=== PATIENT | male | born 1980 | race Caucasian/White ===

== ENCOUNTER 2021-11-03 12:37 | Emergency (ER) | payer BC ==
[~2021-11-03] VITALS: Ht 182.9 cm; Wt 127.0 kg
== END 2021-11-03 17:20 | disposition home or self-care (01) ==
LOC: ER1 12:37
DX: U07.1 COVID-19 (principal); Z23 Encounter for immunization; E11.9 Type 2 diabetes mellitus without complications
CPT/HCPCS: 99283; M0245; U0002